=== PATIENT | female | born 1965 | race Caucasian/White ===

== ENCOUNTER → 2019-12-29 | Outpatient (CLI) | payer BC ==
[~2019-12-29] MED LIST: MOTR200T44 PO; MYLI40DR PO; OXYC1TAB23 PO
--- NOTE | 2019-12-31 08:26 | SLEEPHOME ---
DATE: 12/29/2019 ORDERED BY: Dr. Damico [facility] home sleep testing was performed due to concern for the obstructive sleep apnea syndrome. For testing, a nocturnal T3 respiratory monitoring device was used. Continuous record was made of pulse, oxygen saturation, air flow, chest and abdominal strain, and body position. There was 9 hours and 59 minutes of data reviewed. There was 6 hours and 28 minutes marked as time in bed. During the interval marked time in bed, there were 49 respiratory events identified of 10 seconds in duration or greater for a respiratory event index of 7.6. The events were primarily obstructive. Baseline pulse rate 59. Pulse rate ranged 51-86. Baseline saturation 96%. Saturations fell to 89%. Testing was performed in both the supine and nonsupine positions. IMPRESSION: Abnormal home sleep testing with repetitive respiratory events and oxygen desaturations to 89% with a respiratory event index of 7.6 is consistent with the obstructive sleep apnea syndrome. RECOMMENDATION: The patient should be encouraged to undergo formal sleep evaluation. [facility]
== END ==
LOC: M SLEEP HO 10:41
PROVIDERS: ATTEND Internal Medicine Cardiovascular Disease
DX: R06.83 Snoring (principal)